=== PATIENT | female | born 1990 | race Caucasian/White ===

== ENCOUNTER 2018-09-15 07:54 | Outpatient (CLI) | payer BC ==
--- NOTE | 2018-09-15 09:07 | ULT ---
LEFT BREAST ULTRASOUND: History: 28-year-old female with palpable left breast mass of the 6 oclock position Technique: Multiplanar grayscale and color doppler images were obtained in a left breast ultrasound. FINDINGS: Normal appearing breast parenchyma is seen. No solid mass or suspicious shadowing is seen. No cystic lesion is identified. IMPRESSION: BIRADS category 1 - negative. Annual screening mammography is recommended at the age of 40. POS: ZOIE
== END 2018-09-15 07:55 | disposition home or self-care (01) ==
LOC: BICULT 07:54
PROVIDERS: ATTEND Physician Assistant
DX: N63.20 Unspecified lump in the left breast, unspecified quadrant (principal)

== ENCOUNTER 2019-07-11 08:59 | Emergency (ER) | payer BC ==
[2019-07-11 09:42] LABS: #Basophils 0.1 thou/uL (0.0-0.2); #Eosinphils 0.2 thou/uL (0.0-0.7); #Lymphocytes 1.9 thou/uL (1.20-3.40); #Monocytes 0.7 thou/uL (0.11-0.59); #Neutrophils 5.3 thou/uL (1.40-6.50); %Basophils 0.9 % (0.0-1.0); %Monocytes 8.5 % (0.0-10.0); %Neutrophils 65.5 % (42.0-75.0); Hemoglobin 12.9 g/dL (12.0-16.0); Mean Corpuscular HGB CONC 32.5 g/dL (32.0-36.0); Mean Corpuscular Hemoglobin 29.4 pg (27.0-31.0); Mean Corpuscular Volume 90.5 fL (78.0-98.0); Platelet Count 235 thou/uL (130-400); RBC Distribution Width 12.7 % (11.5-14.5); Red Blood Cell (RBC) Count 4.38 mill/uL (4.20-5.40); White Blood Cell (WBC) Count 8.1 thou/uL (4.8-10.8)
--- NOTE | 2019-07-11 10:38 | ULT ---
TRANSVAGINAL TRANSABDOMINAL PELVIC ULTRASOUND: INDICATION: Concern for ectopic . FINDINGS: Greyscale, color and spectral Doppler imaging obtained. The uterus measures 8.0 x 4.2 x 5.8 cm. Endometrial stripe measures 1.28 cm. No intrauterine gestat ion is evident. No extrauterine mass is grossly noted. Left ovary measures 2.9 x 1.7 x 1.9 cm. The right ovary measures 2.9 x 3.1 x 2.6 cm. There is minimal free fluid within the pelvis. There is s ome shadowing artifact adjacent to the left ovary likely related to adjacent bowel. IMPRESSION: Findings consistent with of undetermined location. Recommend continued clinical sonographi c followup. Findings may reflect early , ectopic , or missed . POS: CET
[2019-07-14 22:36] LABS: Chlamydia by PCR Not Detected (NotDetected); GC by PCR Not Detected (NotDetected)
== END 2019-07-11 11:01 | disposition home or self-care (01) ==
LOC: SCSER 08:59
DX: O20.0 Threatened abortion (principal); Z3A.01 Less than 8 weeks gestation of pregnancy; Z87.891 Personal history of nicotine dependence
CPT/HCPCS: 76856; 84702; 85025; 86900; 86901; 87480; 87491; 87510; 87591; 87660

== ENCOUNTER 2024-05-28 08:31 | Emergency (ER) | payer BC, OTHER ==
[2024-05-28] MEDS ORDERED: Ketorolac Tromethamine 30 MG (1 mL) VIAL ONE (09:26)
[2024-05-28 09:39] LABS: ALT (SGPT) 102 U/L (8-55); AST (SGOT) 150 U/L (5-34); Albumin 2.8 g/dL (3.5-5.0); Alkaline Phosphatase 178 U/L (40-110); Anion Gap 11 mmol/L (10-20); BHCG - Serum Negative (NEGATIVE); BUN (Urea Nitrogen) 11 mg/dL (7.0-18.7); Bilirubin, Total 1.2 mg/dL (0.2-1.2); Calc. Creatinine Clearance 0 mL/min (70-130); Calcium 8.3 mg/dL (7.8-10.44); Carbon Dioxide 24 mmol/L (22-29); Chloride 98 mmol/L (98-107); Estimated GFR 72; Globulin 3.9 g/dL (2.4-3.5); Glucose 101 mg/dL (70-105); Lipase 28 U/L (8-78); Potassium 3.2 mmol/L (3.5-5.1); Pregs Control Background? CLEAR/WHITE (CLR/WHITE); Pregs Control Bar Appear? YES (CONTROL BAR); Protein, Total 6.7 g/dL (6.0-8.3); Sodium 130 mmol/L (136-145)
[2024-05-28 09:44] LABS: Troponin I Less than 0.010 ng/mL (< 0.028)
[2024-05-28 10:09] LABS: #Basophils Less than 0.03 10x3/uL (0.0-0.2); #Eosinophils Less than 0.03 10x3/uL (0.0-0.7); %Basophils 0.3 % (0.0-1.0); %Lymphocytes 7.8 % (21.0-51.0); %Monocytes 3.5 % (0.0-10.0); %Neutrophils 87.1 % (42.0-75.0); Band 37 % (5-11); Hematocrit 36.6 % (36.0-47.0); Hemoglobin 12.3 g/dL (12.0-16.0); Large Platelets 13.9 % (0-5); Lymphocytes 9 % (21-51); Mean Corpuscular HGB CONC 33.6 g/dL (32.0-36.0); Mean Corpuscular Hemoglobin 28.3 pg (27.0-31.0); Mean Corpuscular Volume 84.1 fL (78.0-98.0); Monocytes 1 % (0-10); Neutrophil 54 % (42-75); Platelet Adequacy Comment Significant Decrease; Platelet Count 30 10x3/uL (130-400); RBC Distribution Width 13.7 % (11.5-14.5); RBC Morphology Within Normal Limits; Red Blood Cell (RBC) Count 4.35 mill/uL (4.20-5.40)
[2024-05-28 10:54] LABS: Blood, Urine 3+ (Negative); CAUTI Indications for Culture Dysuria,urgency,freq; Clarity Extra Turbid (Clear); Glucose, Urine (Dipstick) Normal (Negative); Leukocyte 75 Leu/uL (Negative); Nitrite Negative (Negative); Protein, Urine (Dipstick) 100 mg/dL (Neg-Trace); RBC/HPF Greater than 50 HPF (0-3); Specific Gravity, Urine 1.012 (1.002-1.036); Squamous Epithelial 0-3 HPF (0-3)
[2024-05-28 10:58] LABS: Bacteria/HPF 1+ HPF (None Seen)
[2024-05-28 10:59] LABS: Ketone, Urine Negative (Negative)
[2024-05-28 11:00] LABS: Bilirubin Unable to Interpret (Negative); Urobilinogen UNABLE TO INTERPRET mg/dL (Less than 2)
[2024-05-28 11:01] LABS: Urine Culture Reflex No No
[2024-05-28 11:44] LABS: MONO NEGATIVE CONTROL ZONE White (Negative) (White); MONO POSITIVE CONTROL Pink Line (Positive) (PINK/RED); Mononucleosis NEGATIVE (NEGATIVE)
== END 2024-05-28 11:59 | disposition home or self-care (01) ==
LOC: ERS 08:31
DX: B34.9 Viral infection, unspecified (principal); D69.6 Thrombocytopenia, unspecified; N39.0 Urinary tract infection, site not specified; R94.5 Abnormal results of liver function studies
CPT/HCPCS: 36415; 80053; 81001; 83605; 83690; 84484; 84703; 85025; 86308; 87428; 93005; 96374; J1885

== ENCOUNTER 2024-05-30 15:08 | Inpatient (IN) | payer OTHER ==
[~2024-05-30 15:08] MED LIST: Iopamidol-370 76% 500 ML MDV (1 ML CHARGE) ONE
[2024-05-30 15:54] LABS: Hematocrit 35.2 % (36.0-47.0); Hemoglobin 12.2 g/dL (12.0-16.0); Mean Corpuscular HGB CONC 34.7 g/dL (32.0-36.0); Mean Corpuscular Hemoglobin 28.7 pg (27.0-31.0); Mean Corpuscular Volume 82.8 fL (78.0-98.0); Platelet Count 19 10x3/uL (130-400); RBC Distribution Width 14.5 % (11.5-14.5); Red Blood Cell (RBC) Count 4.25 mill/uL (4.20-5.40)
[2024-05-30 16:00] LABS: BHCG - Serum Negative (NEGATIVE); Pregs Control Background? CLEAR/WHITE (CLR/WHITE); Pregs Control Bar Appear? YES (CONTROL BAR)
[2024-05-30 16:03] LABS: Actual Bicarbonate (HCO3v) 19.1 mEq/L (22-28); Base Excess -6.4 mEq/L (-2.0 to +3.0); Calcium, Ionized (venous) 1.02 mmol/L (1.16-1.32); Chloride (VBG) 96 mmol/L (98-106); Hematocrit-VBG 39 % (36.0-47.0); Hemoglobin (Hb) 13.2 g/dL (11.7-15.5); pH (venous) 7.317 (7.32-7.43)
[2024-05-30] MEDS ORDERED: NOREPINEPHRINE 8 MG/250 ML-D5W 250 ML ONE (16:03)
[2024-05-30 16:12] LABS: ALT (SGPT) 142 U/L (8-55); AST (SGOT) 299 U/L (5-34); Albumin 2.3 g/dL (3.5-5.0); Alkaline Phosphatase 211 U/L (40-110); Anion Gap 18 mmol/L (10-20); BUN (Urea Nitrogen) 37 mg/dL (7.0-18.7); Bilirubin, Total 5.1 mg/dL (0.2-1.2); Calc. Creatinine Clearance 0 mL/min (70-130); Calcium 7.9 mg/dL (7.8-10.44); Carbon Dioxide 18 mmol/L (22-29); Chloride 96 mmol/L (98-107); Estimated GFR 22; Globulin 3.6 g/dL (2.4-3.5); Glucose 96 mg/dL (70-105); Lipase 16 U/L (8-78); Magnesium 2.2 mg/dL (1.6-2.6); Potassium 3.4 mmol/L (3.5-5.1); Protein, Total 5.9 g/dL (6.0-8.3); Sodium 129 mmol/L (136-145)
[2024-05-30 16:14] LABS: Troponin I 0.041 ng/mL (< 0.028)
[2024-05-30 16:16] LABS: Band 56 % (5-11); Large Platelets 12.4 % (0-5); Lymphocytes 1 % (21-51); Monocytes 3 % (0-10); Neutrophil 40 % (42-75); Platelet Adequacy Comment Platelets Decreased; Polychromasia SLIGHT = 2-3 cells HPF (0-2); Reflex for Review?? YES; Smudge Cells 5.7 %
[2024-05-30] MEDS ORDERED: Cefepime 2 GM VIAL ONE (16:45)
[2024-05-30] MEDS ORDERED: Sodium Chloride 0.9% 100 ML ONE (16:45)
[2024-05-30] MEDS ORDERED: Vancomycin 1 GM/200 ML (FROZEN) BAG ONE (16:45)
[2024-05-30] MEDS ORDERED: Hydrocortisone Sod Succ/PF 100 mg/2 ml Vial ONE (17:55)
[2024-05-30 19:03] LABS: Lactic Acid 3.01 mmol/L (0.5-2.2)
[2024-05-30] MEDS: Lactated Ringer's 1,000 ML IV SCH (20:50)
[2024-05-30 21:30] LABS: INR-International Normal Ratio 1.2; Prothrombin Time 15.2 sec (12.0-14.7)
[2024-05-30 21:31] LABS: PTT 37.5 sec (22.9-36.1)
[2024-05-30 21:32] LABS: Hematocrit 35.8 % (36.0-47.0); Hemoglobin 12.1 g/dL (12.0-16.0); Mean Corpuscular HGB CONC 33.8 g/dL (32.0-36.0); Mean Corpuscular Hemoglobin 28.5 pg (27.0-31.0); Mean Corpuscular Volume 84.4 fL (78.0-98.0); Platelet Count 19 10x3/uL (130-400); RBC Distribution Width 14.7 % (11.5-14.5); Red Blood Cell (RBC) Count 4.24 mill/uL (4.20-5.40)
[2024-05-30 21:33] LABS: Lactic Acid 2.84 mmol/L (0.5-2.2)
[2024-05-30 21:37] LABS: Magnesium 2.1 mg/dL (1.6-2.6)
[2024-05-30 21:38] LABS: ALT (SGPT) 133 U/L (8-55); AST (SGOT) 269 U/L (5-34); Albumin 2.2 g/dL (3.5-5.0); Alkaline Phosphatase 198 U/L (40-110); Anion Gap 19 mmol/L (10-20); BUN (Urea Nitrogen) 35 mg/dL (7.0-18.7); Bilirubin, Total 5.4 mg/dL (0.2-1.2); Calc. Creatinine Clearance 59 mL/min (70-130); Calcium 7.3 mg/dL (7.8-10.44); Carbon Dioxide 14 mmol/L (22-29); Chloride 101 mmol/L (98-107); Estimated GFR 27; Globulin 3.5 g/dL (2.4-3.5); Glucose 113 mg/dL (70-105); Potassium 3.2 mmol/L (3.5-5.1); Protein, Total 5.7 g/dL (6.0-8.3); Sodium 131 mmol/L (136-145)
[2024-05-30] MEDS ORDERED: Dextrose 5% in Water 1,000 ML IV PRN (21:40)
[2024-05-30] MEDS ORDERED: Glucagon 1 MG/ML KIT IM PRN (21:40)
[2024-05-30] MEDS ORDERED: Dextrose 50% Abboject 50 ML SYRINGE SLOW IVP PRN (21:40)
[2024-05-30 21:41] LABS: D-Dimer Test 18.74 mcg/mL (0.27-0.43); Troponin I 0.029 ng/mL (< 0.028)
[2024-05-30 21:49] LABS: Band 28 % (5-11); Burr Cells SLIGHT = 2-5 cells HPF (0-1); Large Platelets 2.9 % (0-5); Lymphocytes 3 % (21-51); Macrocytosis SLIGHT = 6-15 cells HPF (0-5); Monocytes 4 % (0-10); Neutrophil 64 % (42-75); Plasma Cells 1 % (0-0); Platelet Adequacy Comment Platelets Decreased; Polychromasia SLIGHT = 2-3 cells HPF (0-2); Reactive Lymphocytes 1 % (0-10); Smudge Cells 4.9 %; Tear Drops SLIGHT = 2-5 cells HPF (0-1)
[2024-05-30 22:15] LABS: Bilirubin Negative (Negative); Blood, Urine Trace (Negative); CAUTI Indications for Culture Fever or rigors; Clarity Turbid (Clear); Glucose, Urine (Dipstick) Normal (Negative); Ketone, Urine Negative (Negative); Leukocyte Negative Leu/uL (Negative); Nitrite Negative (Negative); Protein, Urine (Dipstick) 10 mg/dL (Neg-Trace); RBC/HPF 0-3 HPF (0-3); Specific Gravity, Urine 1.026 (1.002-1.036); Squamous Epithelial 0-3 HPF (0-3); Urobilinogen Normal mg/dL (Less than 2); WBC/HPF 21-50 HPF (0-3)
[2024-05-30 22:17] LABS: Bacteria/HPF 1+ HPF (None Seen)
[2024-05-30 22:18] LABS: Urine Culture Reflex Yes Yes
[2024-05-30] MEDS: Vancomycin 1 GM in Premix 1 BAG IVPB SCH (22:45)
[2024-05-30] MEDS: Albumin 25% 25 GM (100 mL) BOT IVPB SCH (22:46)
[2024-05-30] MEDS: Potassium Chloride 20 MEQ TAB PO SCH (23:05)
[2024-05-30 23:12] LABS: HBsAg Index 0.48 S/CO (0-0.99); Hep A IgM AB NONREACTIVE (NonReactive); Hep A IgM S/CO 0.19 S/CO (0-0.79); Hep B Core IgM Index 0.12 S/CO (0-0.79); Hep B Surf Ag NONREACTIVE S/CO (NonReactive); Hep C IgG Ab NONREACTIVE S/CO (NonReactive); Hep C Index 0.09 S/CO (0-0.79); Hepatitis B Core IgM Abs NONREACTIVE S/CO (NonReactive)
[2024-05-30] MEDS: Hydrocortisone Sod Succ/PF 100 mg/2 ml Vial IVP SCH (23:57)
[2024-05-30] MEDS: Calcium Carbonate 500 MG ChewTAB PO PRN (23:59)
[2024-05-31 02:56] LABS: Actual Bicarbonate (HCO3v) 19.4 mEq/L (22-28); Base Excess -5.2 mEq/L (-2.0 to +3.0); Calcium, Ionized (venous) 1.02 mmol/L (1.16-1.32); Chloride (VBG) 104 mmol/L (98-106); Hematocrit-VBG 37 % (36.0-47.0); Hemoglobin (Hb) 12.6 g/dL (11.7-15.5); Potassium (VBG) 4.05 mmol/L (3.70-5.30); pH (venous) 7.366 (7.32-7.43)
[2024-05-31 03:15] LABS: Hematocrit 33.5 % (36.0-47.0); Hemoglobin 11.8 g/dL (12.0-16.0); Mean Corpuscular HGB CONC 35.2 g/dL (32.0-36.0); Mean Corpuscular Hemoglobin 28.4 pg (27.0-31.0); Mean Corpuscular Volume 80.7 fL (78.0-98.0); Platelet Count 15 10x3/uL (130-400); RBC Distribution Width 14.9 % (11.5-14.5); Red Blood Cell (RBC) Count 4.15 mill/uL (4.20-5.40)
[2024-05-31 03:36] LABS: Anisocytosis SLIGHT = 6-15 cells HPF (0-5); Band 23 % (5-11); Lymphocytes 7 % (21-51); Microcytosis SLIGHT = 6-15 cells HPF (0-5); Monocytes 1 % (0-10); Neutrophil 69 % (42-75); Platelet Adequacy Comment Significant Decrease; Polychromasia SLIGHT = 2-3 cells HPF (0-2); Target Cells SLIGHT = 2-5 cells HPF (0-1); Tear Drops SLIGHT = 2-5 cells HPF (0-1)
[2024-05-31 03:56] LABS: ALT (SGPT) 111 U/L (8-55); AST (SGOT) 224 U/L (5-34); Albumin 2.3 g/dL (3.5-5.0); Alkaline Phosphatase 161 U/L (40-110); Anion Gap 18 mmol/L (10-20); BUN (Urea Nitrogen) 33 mg/dL (7.0-18.7); Bilirubin, Total 5.4 mg/dL (0.2-1.2); Calc. Creatinine Clearance 80 mL/min (70-130); Calcium 7.5 mg/dL (7.8-10.44); Carbon Dioxide 15 mmol/L (22-29); Chloride 105 mmol/L (98-107); Estimated GFR 40; Globulin 3.1 g/dL (2.4-3.5); Glucose 113 mg/dL (70-105); Magnesium 2.5 mg/dL (1.6-2.6); Potassium 3.7 mmol/L (3.5-5.1); Protein, Total 5.4 g/dL (6.0-8.3); Sodium 134 mmol/L (136-145)
[2024-05-31] MEDS: Cefepime 2 GM in Sodium Chloride 0.9% 100 ML IVPB SCH (04:27)
[2024-05-31 04:47] VITALS: BMI 39.9
[2024-05-31 07:22] LABS: Lactic Acid 2.01 mmol/L (0.5-2.2)
[2024-05-31 07:32] LABS: MONO NEGATIVE CONTROL ZONE White (Negative) (White); MONO POSITIVE CONTROL Pink Line (Positive) (PINK/RED); Mononucleosis NEGATIVE (NEGATIVE)
[2024-05-31 08:15] LABS: Influenza A by NAA Not Detected (NotDetected); Influenza B by NAA Not Detected (NotDetected); RSV by NAA Not Detected (NotDetected); SARS-CoV-2 NAA Rapid Test Not Detected (NotDetected)
[2024-05-31] MEDS: Acetaminophen 500 MG TAB PO PRN (08:42)
[2024-05-31] MEDS: Vancomycin HCl 500 MG in Sodium Chloride 0.9% 100 ML IVPB SCH (08:42)
[2024-05-31] MEDS: Pantoprazole DR 40 MG TAB PO SCH (08:43)
[2024-05-31 09:16] LABS: Phosphorus 2.8 mg/dL (2.3-4.7)
[2024-05-31] MEDS: Amitriptyline HCl 25 MG TAB PO SCH (10:13)
[2024-05-31] MEDS: Vancomycin (BATCH) 1.5 GM in Premix 1 BAG IVPB SCH (11:47)
[2024-05-31 13:05] LABS: #Basophils 0.03 10x3/uL (0.0-0.2); #Eosinophils Less than 0.03 10x3/uL (0.0-0.7); %Basophils 0.3 % (0.0-1.0); %Monocytes 2.7 % (0.0-10.0); %Neutrophils 85.8 % (42.0-75.0); Hematocrit 32.1 % (36.0-47.0); Hemoglobin 10.8 g/dL (12.0-16.0); Mean Corpuscular HGB CONC 33.6 g/dL (32.0-36.0); Mean Corpuscular Hemoglobin 28.3 pg (27.0-31.0); Platelet Count 20 10x3/uL (130-400); Red Blood Cell (RBC) Count 3.82 mill/uL (4.20-5.40)
[2024-05-31 13:22] LABS: ALT (SGPT) 84 U/L (8-55); AST (SGOT) 175 U/L (5-34); Albumin 2.8 g/dL (3.5-5.0); Alkaline Phosphatase 154 U/L (40-110); Anion Gap 14 mmol/L (10-20); BUN (Urea Nitrogen) 32 mg/dL (7.0-18.7); Bilirubin, Total 5.8 mg/dL (0.2-1.2); Calc. Creatinine Clearance 100 mL/min (70-130); Calcium 7.8 mg/dL (7.8-10.44); Carbon Dioxide 18 mmol/L (22-29); Chloride 106 mmol/L (98-107); Estimated GFR 50; Globulin 2.5 g/dL (2.4-3.5); Glucose 95 mg/dL (70-105); Protein, Total 5.3 g/dL (6.0-8.3); Sodium 135 mmol/L (136-145)
[2024-05-31] MEDS: Dexmedetomidine In 0.9 % NaCl 100 ML IVPB SCH (13:50)
[2024-05-31] MEDS: Ondansetron PF 4 MG/2 ML Vial IVP PRN (14:24)
[2024-05-31] MEDS ORDERED: Etomidate 40 MG (20 mL) VIAL ONE (15:18)
[2024-05-31] MEDS ORDERED: SUCCINYLCHOLINE/SOD CL,ISO/PF 200 MG/10 ML SYRINGE FS ONE (15:18)
[2024-05-31] MEDS ORDERED: PROPOFOL 200 MG/20 ML VIAL ONE (15:18)
[2024-05-31] MEDS: Fentanyl CADD 100 ML IV SCH (15:40)
[2024-05-31] MEDS ORDERED: Propofol 1,000 MG/100 ML VIAL IV PRN (15:45)
[2024-05-31] MEDS ORDERED: Propofol BOLUS 1,000 MG/100 ML VIAL IV PRN (15:45)
[2024-05-31] MEDS ORDERED: Fentanyl BOLUS 250 ML IVPB PRN (15:45)
[2024-05-31] MEDS ORDERED: DISCONTINUE PREVIOUS NARCOTIC PAIN MEDICATIONS AND BENZODIAZEPINES FS SCH (15:45)
[2024-05-31 15:53] LABS: Actual Bicarbonate (HCO3a) 16.4 mEq/L (22-28); CO2 Tension 33.7 mmHg (35.0-45.0); Calcium, Ionized (arterial) 1.15 mmol/L (1.12-1.30); Carboxyhemoglobin (COHb) 0.3 gm% (0.0-3.0); Hematocrit-ABG 33 % (36.0-47.0); Hemoglobin (Hb) 11.3 g/dL (12.0-16.0); Potassium - ABG Lab 3.31 mmol/L (3.70-5.30); pH, Arterial 7.304 (7.35-7.45)
[2024-05-31 15:58] LABS: ALV-art Gradient 590.875 mmHg (0-20); Puncture Site Left Radial artery
[2024-05-31] MEDS: Lorazepam 2 MG/ML VIAL SLOW IVP PRN (16:14)
[2024-05-31] MEDS: Fentanyl CADD 100 ML ONE (16:21)
[2024-05-31] MEDS: Ventilator Sedation Protocol 1 EACH FS ONE (16:21)
[2024-05-31] MEDS: fentaNYL 50 mcg/mL 1 mL Vial SLOW IVP SCH (16:22)
[2024-05-31 17:37] LABS: Bilirubin, Direct 5.1 mg/dL (0.1-0.3); Bilirubin, Total 6.7 mg/dL (0.2-1.2)
[2024-05-31] MEDS: Potassium Chloride 20 MEQ in Premix 1 BAG IVPB SCH (18:16)
[2024-05-31] MEDS: NOREPINEPHRINE 8 MG/250 ML-D5W 250 ML IVPB SCH (18:17)
[2024-05-31 18:32] LABS: #Basophils 0.04 10x3/uL (0.0-0.2); #Eosinophils Less than 0.03 10x3/uL (0.0-0.7); %Basophils 0.3 % (0.0-1.0); %Lymphocytes 6.1 % (21.0-51.0); %Monocytes 3.1 % (0.0-10.0); Hematocrit 31.4 % (36.0-47.0); Hemoglobin 10.7 g/dL (12.0-16.0); Mean Corpuscular HGB CONC 34.1 g/dL (32.0-36.0); Mean Corpuscular Hemoglobin 28.5 pg (27.0-31.0); Mean Corpuscular Volume 83.7 fL (78.0-98.0); Platelet Count 14 10x3/uL (130-400); RBC Distribution Width 15.3 % (11.5-14.5); Red Blood Cell (RBC) Count 3.75 mill/uL (4.20-5.40)
[2024-05-31 18:44] LABS: INR-International Normal Ratio 1.2; Prothrombin Time 15.5 sec (12.0-14.7)
[2024-05-31 18:45] LABS: Fibrinogen 198 mg/dL (253-463); PTT 34.7 sec (22.9-36.1)
[2024-05-31 18:59] LABS: ALT (SGPT) 83 U/L (8-55); AST (SGOT) 190 U/L (5-34); Albumin 2.6 g/dL (3.5-5.0); Alkaline Phosphatase 153 U/L (40-110); Anion Gap 13 mmol/L (10-20); BUN (Urea Nitrogen) 37 mg/dL (7.0-18.7); Bilirubin, Direct 5.4 mg/dL (0.1-0.3); Bilirubin, Total 6.8 mg/dL (0.2-1.2); Calc. Creatinine Clearance 81 mL/min (70-130); Calcium 7.8 mg/dL (7.8-10.44); Carbon Dioxide 16 mmol/L (22-29); Chloride 108 mmol/L (98-107); Estimated GFR 38; Glucose 124 mg/dL (70-105); Magnesium 2.6 mg/dL (1.6-2.6); Phosphorus 2.1 mg/dL (2.3-4.7); Potassium 3.4 mmol/L (3.5-5.1); Sodium 134 mmol/L (136-145)
[2024-05-31] MEDS ORDERED: Electrolyte Replacement Protocol 1 EACH FS SCH (20:11)
[2024-05-31] MEDS ORDERED: Sodium Bicarbonate 150 MEQ in Dextrose 5% in Water 1,000 ML IVP SCH (21:30)
[2024-05-31] MEDS ORDERED: Potassium Chloride 20 MEQ in Premix 1 BAG IVPB SCH (22:00)
[2024-05-31 22:06] LABS: Actual Bicarbonate (HCO3a) 18.3 mEq/L (22-28); Base Excess (BEa) -6.7 mEq/L (-2.0 to +3.0); Calcium, Ionized (arterial) 1.13 mmol/L (1.12-1.30); Carboxyhemoglobin (COHb) 0.7 gm% (0.0-3.0); Hematocrit-ABG 32 % (36.0-47.0); Hemoglobin (Hb) 10.8 g/dL (12.0-16.0); pH, Arterial 7.337 (7.35-7.45)
[2024-05-31 22:10] LABS: O2 Tension (PaO2), arterial 41.3 mmHg (80.0-100.0)
[2024-05-31] MEDS: Sodium Bicarbonate 150 MEQ in Dextrose 5% in Water 1,000 ML IV SCH (22:26)
[2024-05-31] MEDS: Albumin 25% 25 GM (100 mL) BOT IVPB SCH (23:10)
[2024-06-01 04:37] LABS: ALT (SGPT) 67 U/L (8-55); AST (SGOT) 167 U/L (5-34); Albumin 2.8 g/dL (3.5-5.0); Alkaline Phosphatase 147 U/L (40-110); Anion Gap 16 mmol/L (10-20); BUN (Urea Nitrogen) 47 mg/dL (7.0-18.7); Bilirubin, Total 7.5 mg/dL (0.2-1.2); Calc. Creatinine Clearance 55 mL/min (70-130); Calcium 7.7 mg/dL (7.8-10.44); Carbon Dioxide 17 mmol/L (22-29); Chloride 106 mmol/L (98-107); Estimated GFR 24; Globulin 2.1 g/dL (2.4-3.5); Glucose 131 mg/dL (70-105); Magnesium 2.8 mg/dL (1.6-2.6); Protein, Total 4.9 g/dL (6.0-8.3); Sodium 135 mmol/L (136-145); Vancomycin, Random 19.6 ug/mL (See Comment)
[2024-06-01 05:10] LABS: Hematocrit 28.5 % (36.0-47.0); Hemoglobin 9.5 g/dL (12.0-16.0); Mean Corpuscular HGB CONC 33.3 g/dL (32.0-36.0); Mean Corpuscular Hemoglobin 28.3 pg (27.0-31.0); Mean Corpuscular Volume 84.8 fL (78.0-98.0); Platelet Count 14 10x3/uL (130-400); RBC Distribution Width 15.6 % (11.5-14.5); Red Blood Cell (RBC) Count 3.36 mill/uL (4.20-5.40)
[2024-06-01 05:12] LABS: Band 20 % (5-11); Large Platelets 2.9 % (0-5); Lymphocytes 5 % (21-51); Metamyelocyte 1 % (0-0); Monocytes 1 % (0-10); Myelocyte 1 % (0-0); Neutrophil 68 % (42-75); Platelet Adequacy Comment Significant Decrease; Polychromasia SLIGHT = 2-3 cells HPF (0-2); RBC Morphology Within Normal Limits; Reactive Lymphocytes 4 % (0-10); Smudge Cells 12.6 %
[2024-06-01 05:27] LABS: Phosphorus 2.8 mg/dL (2.3-4.7)
[2024-06-01] MEDS: Vancomycin 1 GM in Premix 1 BAG IVPB SCH (08:04)
[2024-06-01] MEDS ORDERED: Vancomycin (BATCH) 1.5 GM in Premix 1 BAG IVPB SCH (09:00)
[2024-06-01] MEDS: Pantoprazole 40 MG VIAL IVP SCH (09:10)
[2024-06-01] MEDS: Vecuronium 10 MG VIAL IV PRN (09:41)
[2024-06-01] MEDS: Meropenem 1 GM in Sodium Chloride 0.9% 100 ML IVPB SCH ×2 (09:42→17:49)
[2024-06-01] MEDS: Furosemide 20 MG (2 mL) VIAL SLOW IVP SCH (10:11)
[2024-06-01] MEDS: FLU (Fluarix Triv) TS24-25(6MOS UP)/PF 45 MCG/0.5 ML Syringe IM ONE (10:13)
[2024-06-01 14:34] LABS: Platelet Count 10 10x3/uL (130-400)
[2024-06-01 14:35] LABS: Hematocrit 28.4 % (36.0-47.0); Hemoglobin 9.5 g/dL (12.0-16.0); Mean Corpuscular HGB CONC 33.5 g/dL (32.0-36.0); Mean Corpuscular Hemoglobin 28.1 pg (27.0-31.0); Platelet Count 10 10x3/uL (130-400); Red Blood Cell (RBC) Count 3.38 mill/uL (4.20-5.40)
[2024-06-01 14:47] LABS: Fibrinogen 158 mg/dL (253-463); INR-International Normal Ratio 1.4; PTT 37.2 sec (22.9-36.1); Prothrombin Time 17.5 sec (12.0-14.7)
[2024-06-01 14:50] LABS: Anion Gap 15 mmol/L (10-20); BUN (Urea Nitrogen) 59 mg/dL (7.0-18.7); Calc. Creatinine Clearance 48 mL/min (70-130); Calcium 7.5 mg/dL (7.8-10.44); Carbon Dioxide 18 mmol/L (22-29); Chloride 106 mmol/L (98-107); Estimated GFR 20; Glucose 132 mg/dL (70-105); Potassium 3.9 mmol/L (3.5-5.1); Sodium 135 mmol/L (136-145)
[2024-06-01 14:58] LABS: Band 19 % (5-11); Hypochromia SLIGHT = 6-15 cells HPF (0-5); Large Platelets 1.9 % (0-5); Lymphocytes 6 % (21-51); Monocytes 7 % (0-10); Neutrophil 68 % (42-75); Platelet Adequacy Comment Platelets Decreased; Polychromasia SLIGHT = 2-3 cells HPF (0-2); Smudge Cells 7.8 %
[2024-06-01 15:03] LABS: D-Dimer Test 10.66 mcg/mL (0.27-0.43)
[2024-06-01] MEDS ORDERED: Vecuronium 10 MG VIAL IV PRN (17:00)
[2024-06-01 17:34] LABS: Legionella Urinary Ag Negative (Negative)
[2024-06-01 17:35] LABS: Strep pneumo Urine Ag NEGATIVE (NEGATIVE)
[2024-06-01] MEDS: Clindamycin/D5W 900 MG in Premix 1 BAG IVPB SCH ×2 (17:48→21:06)
[2024-06-01] MEDS: LevoFLOXacin 750 mg/D5W 750 MG in Premix 1 BAG IVPB SCH (17:49)
[2024-06-02 04:28] LABS: #Basophils 0.05 10x3/uL (0.0-0.2); #Eosinophils Less than 0.03 10x3/uL (0.0-0.7); %Basophils 0.3 % (0.0-1.0); %Lymphocytes 14.3 % (21.0-51.0); %Monocytes 4.1 % (0.0-10.0); %Neutrophils 75.8 % (42.0-75.0); Hematocrit 27.3 % (36.0-47.0); Platelet Count 17 10x3/uL (130-400); RBC Distribution Width 16.1 % (11.5-14.5); Red Blood Cell (RBC) Count 3.21 mill/uL (4.20-5.40)
[2024-06-02 04:36] LABS: Platelet Count 18 10x3/uL (130-400)
[2024-06-02 04:43] LABS: Vancomycin, Random 19.8 ug/mL (See Comment)
[2024-06-02 04:54] LABS: Fibrinogen 217 mg/dL (253-463)
[2024-06-02 04:55] LABS: INR-International Normal Ratio 1.3; PTT 29.3 sec (22.9-36.1); Prothrombin Time 15.8 sec (12.0-14.7)
[2024-06-02 05:20] LABS: ALT (SGPT) 70 U/L (8-55); AST (SGOT) 196 U/L (5-34); Alkaline Phosphatase 139 U/L (40-110); Anion Gap 17 mmol/L (10-20); BUN (Urea Nitrogen) 78 mg/dL (7.0-18.7); Bilirubin, Total 8.8 mg/dL (0.2-1.2); Calc. Creatinine Clearance 47 mL/min (70-130); Calcium 7.8 mg/dL (7.8-10.44); Carbon Dioxide 17 mmol/L (22-29); Chloride 108 mmol/L (98-107); Estimated GFR 19; Globulin 2.4 g/dL (2.4-3.5); Glucose 128 mg/dL (70-105); Potassium 3.9 mmol/L (3.5-5.1); Protein, Total 5.4 g/dL (6.0-8.3); Sodium 138 mmol/L (136-145)
[2024-06-02 05:48] LABS: D-Dimer Test 10.74 mcg/mL (0.27-0.43)
[2024-06-02 07:57] LABS: Actual Bicarbonate (HCO3a) 15.9 mEq/L (22-28); Base Excess (BEa) -8.8 mEq/L (-2.0 to +3.0); Calcium, Ionized (arterial) 1.13 mmol/L (1.12-1.30); Carboxyhemoglobin (COHb) 0.2 gm% (0.0-3.0); Hematocrit-ABG 29 % (36.0-47.0); Hemoglobin (Hb) 9.9 g/dL (12.0-16.0); O2 Tension (PaO2), arterial 87.2 mmHg (80.0-100.0); Potassium - ABG Lab 3.91 mmol/L (3.70-5.30); pH, Arterial 7.341 (7.35-7.45)
[2024-06-02 08:07] LABS: Puncture Site Right Radial artery
[2024-06-02] MEDS: Vancomycin HCl 750 MG in Sodium Chloride 0.9% 250 ML 250 ML IVPB SCH (08:21)
[2024-06-02] MEDS: Midazolam HCl 2 mg/2 ml Vial IVP SCH (09:30)
[2024-06-02 09:41] LABS: Complement-C4 10 mg/dL (15-57)
[2024-06-02] MEDS: Midazolam HCl 2 mg/2 ml Vial ONE (09:51)
[2024-06-02] MEDS: methylPREDNISolone Sod Succ 40 MG VIAL IVP SCH (11:02)
[2024-06-02] MEDS: Albumin 25% 25 GM (100 mL) BOT IVPB SCH (11:02)
[2024-06-02 11:30] LABS: Actual Bicarbonate (HCO3a) 17.2 mEq/L (22-28); Base Excess (BEa) -6.8 mEq/L (-2.0 to +3.0); CO2 Tension 29.1 mmHg (35.0-45.0); Calcium, Ionized (arterial) 1.11 mmol/L (1.12-1.30); Carboxyhemoglobin (COHb) 0.3 gm% (0.0-3.0); Hematocrit-ABG 29 % (36.0-47.0); O2 Tension (PaO2), arterial 126.4 mmHg (80.0-100.0); Potassium - ABG Lab 4.04 mmol/L (3.70-5.30); pH, Arterial 7.389 (7.35-7.45)
[2024-06-02 11:38] LABS: ALV-art Gradient 229.375 mmHg (0-20); Puncture Site Left Radial artery
[2024-06-02 12:25] LABS: ANA Symphony (Qualitative) Negative (Negative); ANA Symphony (Quantitative) 0.2 Ratio (< 0.7 Negative); Mitochondrial Ab 0.6 U/mL (<4 Negative); Thyroid Peroxidase IgG Ab Less than 4.0 IU/mL (<25 Normal)
[2024-06-02 13:07] LABS: EliA RAS New Method **** NEW METHOD ****; Jo-1 IgG Antibody Less than 0.3 EliAU/mL (<7 Negative); Rheumatoid Factor IgA Antibody 4.1 IU/mL (<14 Negative); Rheumatoid Factor IgM Antibody 2.9 IU/mL (<3.5 Negative)
[2024-06-02 15:17] LABS: Hematocrit 25.8 % (36.0-47.0); Hemoglobin 8.7 g/dL (12.0-16.0); Mean Corpuscular HGB CONC 33.7 g/dL (32.0-36.0); Mean Corpuscular Hemoglobin 28.1 pg (27.0-31.0); Mean Corpuscular Volume 83.2 fL (78.0-98.0); Mean Platelet Volume 12.2 fL (7.4-10.4); Platelet Count 30 10x3/uL (130-400); RBC Distribution Width 16.4 % (11.5-14.5)
[2024-06-02 15:36] LABS: Anisocytosis SLIGHT = 6-15 cells HPF (0-5); Band 11 % (5-11); Large Platelets 3.9 % (0-5); Lymphocytes 8 % (21-51); Monocytes 2 % (0-10); Neutrophil 77 % (42-75); Nucleated RBC (Manual Ct) 2 % (0); Platelet Adequacy Comment Platelets Decreased; Polychromasia SLIGHT = 2-3 cells HPF (0-2); Reactive Lymphocytes 2 % (0-10); Smudge Cells 4.9 %
[2024-06-02] MEDS: Dexmedetomidine 1,000 MCG in NS 250 mL IVPB SCH (16:45)
[2024-06-03] MEDS: Artificial Tear Ophth Sol 15 ML BOT EA EYE PRN (00:29)
[2024-06-03 04:00] LABS: Vancomycin, Random 20.7 ug/mL (See Comment)
[2024-06-03 04:06] LABS: ALT (SGPT) 55 U/L (8-55); AST (SGOT) 125 U/L (5-34); Albumin 3.4 g/dL (3.5-5.0); Alkaline Phosphatase 94 U/L (40-110); Anion Gap 16 mmol/L (10-20); BUN (Urea Nitrogen) 103 mg/dL (7.0-18.7); Bilirubin, Total 6.3 mg/dL (0.2-1.2); Calc. Creatinine Clearance 46 mL/min (70-130); Calcium 7.9 mg/dL (7.8-10.44); Carbon Dioxide 18 mmol/L (22-29); Chloride 109 mmol/L (98-107); Estimated GFR 18; Globulin 2.2 g/dL (2.4-3.5); Glucose 165 mg/dL (70-105); Protein, Total 5.6 g/dL (6.0-8.3); Sodium 139 mmol/L (136-145)
[2024-06-03 04:08] LABS: Hematocrit 24.1 % (36.0-47.0); Hemoglobin 8.2 g/dL (12.0-16.0); Mean Corpuscular Hemoglobin 27.9 pg (27.0-31.0); Platelet Count 19 10x3/uL (130-400); Platelet Count 23 10x3/uL (130-400); RBC Distribution Width 16.3 % (11.5-14.5); Red Blood Cell (RBC) Count 2.94 mill/uL (4.20-5.40)
[2024-06-03 04:30] LABS: INR-International Normal Ratio 1.4; PTT 28.8 sec (22.9-36.1); Prothrombin Time 16.8 sec (12.0-14.7)
[2024-06-03 04:34] LABS: Fibrinogen 136 mg/dL (253-463)
[2024-06-03 04:57] LABS: D-Dimer Test Greater than 20.00 mcg/mL (0.27-0.43)
[2024-06-03 05:11] LABS: Band 3 % (5-11); Hypochromia SLIGHT = 6-15 cells HPF (0-5); Lymphocytes 10 % (21-51); Metamyelocyte 2 % (0-0); Monocytes 8 % (0-10); Neutrophil 77 % (42-75); Platelet Adequacy Comment Significant Decrease; Polychromasia SLIGHT = 2-3 cells HPF (0-2); Smudge Cells 10.9 %
[2024-06-03 07:25] LABS: Actual Bicarbonate (HCO3a) 17.8 mEq/L (22-28); Base Excess (BEa) -6.8 mEq/L (-2.0 to +3.0); CO2 Tension 32.1 mmHg (35.0-45.0); Calcium, Ionized (arterial) 1.16 mmol/L (1.12-1.30); Carboxyhemoglobin (COHb) 0.7 gm% (0.0-3.0); Hematocrit-ABG 25 % (36.0-47.0); Hemoglobin (Hb) 8.6 g/dL (12.0-16.0); O2 Tension (PaO2), arterial 102.6 mmHg (80.0-100.0); pH, Arterial 7.362 (7.35-7.45)
[2024-06-03 07:27] LABS: ALV-art Gradient 142.475 mmHg (0-20); Puncture Site Right Radial artery
[2024-06-03] MEDS: Furosemide 40 MG (4 mL) VIAL SLOW IVP SCH ×2 (09:00→12:31)
[2024-06-03 12:48] LABS: Platelet Count 27 10x3/uL (130-400)
[2024-06-03 13:00] LABS: Fibrinogen 171 mg/dL (253-463)
[2024-06-03 13:01] LABS: PTT 27.6 sec (22.9-36.1)
[2024-06-03 13:02] LABS: INR-International Normal Ratio 1.3; Prothrombin Time 16.2 sec (12.0-14.7)
[2024-06-03 13:28] LABS: D-Dimer Test Greater than 20.00 mcg/mL (0.27-0.43)
[2024-06-03 15:31] LABS: Hematocrit 22.4 % (36.0-47.0); Hemoglobin 7.8 g/dL (12.0-16.0); Mean Corpuscular HGB CONC 34.8 g/dL (32.0-36.0); Mean Corpuscular Hemoglobin 28.6 pg (27.0-31.0); Mean Corpuscular Volume 82.1 fL (78.0-98.0); Platelet Count 26 10x3/uL (130-400); RBC Distribution Width 16.5 % (11.5-14.5); Red Blood Cell (RBC) Count 2.73 mill/uL (4.20-5.40)
[2024-06-03 15:54] LABS: Anisocytosis SLIGHT = 6-15 cells HPF (0-5); Band 3 % (5-11); Hypochromia SLIGHT = 6-15 cells HPF (0-5); Large Platelets 2.9 % (0-5); Lymphocytes 6 % (21-51); Monocytes 5 % (0-10); Neutrophil 84 % (42-75); Plasma Cells 1 % (0-0); Platelet Adequacy Comment Platelets Decreased; Polychromasia SLIGHT = 2-3 cells HPF (0-2); Reactive Lymphocytes 2 % (0-10); Smudge Cells 6.7 %; Target Cells SLIGHT = 2-5 cells HPF (0-1)
[2024-06-04 04:59] LABS: Hematocrit 23.8 % (36.0-47.0); Hemoglobin 8.2 g/dL (12.0-16.0); Mean Corpuscular HGB CONC 34.5 g/dL (32.0-36.0); Mean Corpuscular Volume 81.2 fL (78.0-98.0); Platelet Count 26 10x3/uL (130-400); RBC Distribution Width 16.1 % (11.5-14.5); Red Blood Cell (RBC) Count 2.93 mill/uL (4.20-5.40)
[2024-06-04 05:02] LABS: ALT (SGPT) 58 U/L (8-55); AST (SGOT) 110 U/L (5-34); Albumin 3.4 g/dL (3.5-5.0); Alkaline Phosphatase 93 U/L (40-110); Anion Gap 17 mmol/L (10-20); BUN (Urea Nitrogen) 124 mg/dL (7.0-18.7); Bilirubin, Total 4.1 mg/dL (0.2-1.2); Calc. Creatinine Clearance 55 mL/min (70-130); Calcium 8.4 mg/dL (7.8-10.44); Carbon Dioxide 19 mmol/L (22-29); Chloride 112 mmol/L (98-107); Estimated GFR 22; Globulin 2.5 g/dL (2.4-3.5); Glucose 194 mg/dL (70-105); Potassium 3.7 mmol/L (3.5-5.1); Protein, Total 5.9 g/dL (6.0-8.3); Sodium 144 mmol/L (136-145)
[2024-06-04 05:12] LABS: Fibrinogen 151 mg/dL (253-463); INR-International Normal Ratio 1.3; PTT 26.6 sec (22.9-36.1); Prothrombin Time 16.3 sec (12.0-14.7)
[2024-06-04 05:35] LABS: Anisocytosis SLIGHT = 6-15 cells HPF (0-5); Hypochromia SLIGHT = 6-15 cells HPF (0-5); Large Platelets 4.9 % (0-5); Lymphocytes 19 % (21-51); Macrocytosis SLIGHT = 6-15 cells HPF (0-5); Monocytes 7 % (0-10); Myelocyte 1 % (0-0); Neutrophil 73 % (42-75); Nucleated RBC (Manual Ct) 2 % (0); Platelet Adequacy Comment Platelets Decreased; Polychromasia SLIGHT = 2-3 cells HPF (0-2); Smudge Cells 9.7 %
[2024-06-04 06:44] LABS: D-Dimer Test Greater than 20.00 mcg/mL (0.27-0.43)
[2024-06-04 06:46] LABS: Platelet Count 26 10x3/uL (130-400)
[2024-06-04 07:55] LABS: Actual Bicarbonate (HCO3a) 20.5 mEq/L (22-28); Base Excess (BEa) -2.9 mEq/L (-2.0 to +3.0); Calcium, Ionized (arterial) 1.18 mmol/L (1.12-1.30); Carboxyhemoglobin (COHb) 0.9 gm% (0.0-3.0); Hematocrit-ABG 23 % (36.0-47.0); Hemoglobin (Hb) 7.9 g/dL (12.0-16.0); O2 Tension (PaO2), arterial 91.3 mmHg (80.0-100.0); Potassium - ABG Lab 3.59 mmol/L (3.70-5.30); pH, Arterial 7.453 (7.35-7.45)
[2024-06-04 07:57] LABS: Puncture Site Left Radial artery
[2024-06-04] MEDS: Furosemide 20 MG (2 mL) VIAL SLOW IVP SCH (08:56)
[2024-06-04] MEDS: methylPREDNISolone Sod Succ 40 MG VIAL IVP SCH (17:31)
[2024-06-04 18:33] LABS: Hematocrit 24.3 % (36.0-47.0); Hemoglobin 8.3 g/dL (12.0-16.0); Mean Corpuscular HGB CONC 34.2 g/dL (32.0-36.0); Mean Corpuscular Hemoglobin 28.1 pg (27.0-31.0); Mean Corpuscular Volume 82.4 fL (78.0-98.0); Platelet Count 30 10x3/uL (130-400); RBC Distribution Width 16.3 % (11.5-14.5); Red Blood Cell (RBC) Count 2.95 mill/uL (4.20-5.40)
[2024-06-04 19:12] LABS: Anisocytosis SLIGHT = 6-15 cells HPF (0-5); Band 2 % (5-11); Hypochromia SLIGHT = 6-15 cells HPF (0-5); Large Platelets 8.2 % (0-5); Lymphocytes 3 % (21-51); Metamyelocyte 1 % (0-0); Microcytosis SLIGHT = 6-15 cells HPF (0-5); Monocytes 6 % (0-10); Myelocyte 1 % (0-0); Neutrophil 86 % (42-75); Platelet Adequacy Comment Significant Decrease; Polychromasia SLIGHT = 2-3 cells HPF (0-2); Schistocytes SLIGHT = 2-5 cells HPF (0-1); Target Cells SLIGHT = 2-5 cells HPF (0-1)
[2024-06-04 19:37] LABS: Cytoplasmic (C-ANCA) <1:20 titer (Neg:<1:20); Myeloperoxidase AutoAbs <0.2 units (0.0-0.9); Perinuclear (P-ANCA) <1:20 titer (Neg:<1:20); Proteinase-3 AutoAbs Less than 0.2 units (0.0-0.9)
[2024-06-05 04:44] LABS: Fibrinogen 196 mg/dL (253-463)
[2024-06-05 04:45] LABS: INR-International Normal Ratio 1.3; PTT 26.3 sec (22.9-36.1); Prothrombin Time 15.9 sec (12.0-14.7)
[2024-06-05 04:47] LABS: ALT (SGPT) 63 U/L (8-55); AST (SGOT) 83 U/L (5-34); Albumin 3.3 g/dL (3.5-5.0); Alkaline Phosphatase 95 U/L (40-110); Anion Gap 15 mmol/L (10-20); BUN (Urea Nitrogen) 122 mg/dL (7.0-18.7); Bilirubin, Total 3.2 mg/dL (0.2-1.2); Calc. Creatinine Clearance 68 mL/min (70-130); Calcium 8.7 mg/dL (7.8-10.44); Carbon Dioxide 24 mmol/L (22-29); Chloride 117 mmol/L (98-107); Estimated GFR 29; Globulin 2.9 g/dL (2.4-3.5); Glucose 218 mg/dL (70-105); Potassium 3.8 mmol/L (3.5-5.1); Protein, Total 6.2 g/dL (6.0-8.3); Sodium 152 mmol/L (136-145)
[2024-06-05 04:58] LABS: Platelet Count 33 10x3/uL (130-400)
[2024-06-05 04:58] LABS: Hematocrit 23.5 % (36.0-47.0); Mean Corpuscular Hemoglobin 28.3 pg (27.0-31.0); Platelet Count 34 10x3/uL (130-400); RBC Distribution Width 16.4 % (11.5-14.5); Red Blood Cell (RBC) Count 2.83 mill/uL (4.20-5.40)
[2024-06-05] MEDS ORDERED: Insulin Lispro 100 UNIT/ML 10 ML VIAL SC PRN (05:00)
[2024-06-05 05:12] LABS: D-Dimer Test Greater than 20.00 mcg/mL (0.27-0.43)
[2024-06-05] MEDS: Insulin Lispro 100 UNIT/ML 10 ML VIAL SC PRN (06:04)
[2024-06-05 06:09] LABS: Anisocytosis SLIGHT = 6-15 cells HPF (0-5); Band 4 % (5-11); Hypochromia SLIGHT = 6-15 cells HPF (0-5); Large Platelets 13.9 % (0-5); Lymphocytes 6 % (21-51); Metamyelocyte 1 % (0-0); Microcytosis SLIGHT = 6-15 cells HPF (0-5); Monocytes 9 % (0-10); Myelocyte 2 % (0-0); Neutrophil 78 % (42-75); Platelet Adequacy Comment Significant Decrease; Polychromasia SLIGHT = 2-3 cells HPF (0-2); Target Cells SLIGHT = 2-5 cells HPF (0-1); Tear Drops SLIGHT = 2-5 cells HPF (0-1)
[2024-06-05] MEDS: Lactulose 20 GM (30 mL) UDCUP PER TUBE SCH (14:38)
[2024-06-05 17:57] LABS: Hematocrit 25.3 % (36.0-47.0); Hemoglobin 8.3 g/dL (12.0-16.0); Mean Corpuscular HGB CONC 32.8 g/dL (32.0-36.0); Mean Corpuscular Hemoglobin 27.8 pg (27.0-31.0); Mean Corpuscular Volume 84.6 fL (78.0-98.0); Platelet Count 36 10x3/uL (130-400); RBC Distribution Width 16.7 % (11.5-14.5); Red Blood Cell (RBC) Count 2.99 mill/uL (4.20-5.40)
[2024-06-05 18:10] LABS: Anisocytosis SLIGHT = 6-15 cells HPF (0-5); Band 4 % (5-11); Hypochromia SLIGHT = 6-15 cells HPF (0-5); Large Platelets 9.9 % (0-5); Lymphocytes 18 % (21-51); Metamyelocyte 3 % (0-0); Monocytes 10 % (0-10); Neutrophil 64 % (42-75); Platelet Adequacy Comment Platelets Decreased; Poikilocytosis SLIGHT = 6-15 cells HPF (0-5); Polychromasia SLIGHT = 2-3 cells HPF (0-2); Reactive Lymphocytes 1 % (0-10); Target Cells SLIGHT = 2-5 cells HPF (0-1)
[2024-06-05] MEDS: Morphine 2 MG/ML VIAL SLOW IVP PRN (21:46)
[2024-06-06] MEDS: Meropenem 1 GM VIAL ONE (05:37)
[2024-06-06 06:27] LABS: Anion Gap 12 mmol/L (10-20); BUN (Urea Nitrogen) 94 mg/dL (7.0-18.7); Carbon Dioxide 25 mmol/L (22-29); Chloride 123 mmol/L (98-107); Potassium 3.9 mmol/L (3.5-5.1); Sodium 156 mmol/L (136-145)
[2024-06-06 06:28] LABS: ALT (SGPT) 76 U/L (8-55); AST (SGOT) 83 U/L (5-34); Albumin 3.2 g/dL (3.5-5.0); Alkaline Phosphatase 97 U/L (40-110); Bilirubin, Total 2.8 mg/dL (0.2-1.2); Calc. Creatinine Clearance 106 mL/min (70-130); Calcium 8.7 mg/dL (7.8-10.44); Estimated GFR 50; Glucose 207 mg/dL (70-105); Protein, Total 6.2 g/dL (6.0-8.3)
[2024-06-06 06:43] LABS: Actual Bicarbonate (HCO3a) 22.6 mEq/L (22-28); Base Excess (BEa) -1.3 mEq/L (-2.0 to +3.0); CO2 Tension 35.1 mmHg (35.0-45.0); Calcium, Ionized (arterial) 1.25 mmol/L (1.12-1.30); Carboxyhemoglobin (COHb) 1.4 gm% (0.0-3.0); Hematocrit-ABG 32 % (36.0-47.0); Hemoglobin (Hb) 10.9 g/dL (12.0-16.0); O2 Tension (PaO2), arterial 99.2 mmHg (80.0-100.0); pH, Arterial 7.427 (7.35-7.45)
[2024-06-06 06:56] LABS: ALV-art Gradient 106.475 mmHg (0-20); Puncture Site Right Radial artery
[2024-06-06] MEDS ORDERED: Lorazepam 2 MG/ML VIAL SLOW IVP PRN (08:51)
[2024-06-06] MEDS ORDERED: Lactulose 20 GM (30 mL) UDCUP PER TUBE PRN (08:57)
[2024-06-06] MEDS: Dextrose 5% in Water 1,000 ML IV SCH (08:57)
[2024-06-06] MEDS: Dexmedetomidine In 0.9 % NaCl 100 ML IVPB SCH (10:50)
[2024-06-06] MEDS: Meropenem 1 GM in Sodium Chloride 0.9% 100 ML IVPB SCH (13:11)
[2024-06-06] MEDS ORDERED: Loperamide HCl 2 MG CAP PO PRN (13:50)
[2024-06-06] MEDS: Loperamide HCl 2 MG CAP PO SCH (14:22)
[2024-06-07 04:18] LABS: ALT (SGPT) 99 U/L (8-55); AST (SGOT) 97 U/L (5-34); Alkaline Phosphatase 93 U/L (40-110); Anion Gap 11 mmol/L (10-20); BUN (Urea Nitrogen) 56 mg/dL (7.0-18.7); Bilirubin, Total 2.7 mg/dL (0.2-1.2); Calc. Creatinine Clearance 164 mL/min (70-130); Calcium 8.3 mg/dL (7.8-10.44); Carbon Dioxide 24 mmol/L (22-29); Chloride 117 mmol/L (98-107); Estimated GFR 85; Globulin 2.9 g/dL (2.4-3.5); Glucose 166 mg/dL (70-105); Potassium 4.3 mmol/L (3.5-5.1); Protein, Total 5.9 g/dL (6.0-8.3); Sodium 148 mmol/L (136-145)
[2024-06-07 04:20] LABS: Hematocrit 23.6 % (36.0-47.0); Hemoglobin 7.3 g/dL (12.0-16.0); Mean Corpuscular HGB CONC 30.9 g/dL (32.0-36.0); Mean Corpuscular Hemoglobin 28.2 pg (27.0-31.0); Mean Corpuscular Volume 91.1 fL (78.0-98.0); Platelet Count 50 10x3/uL (130-400); Red Blood Cell (RBC) Count 2.59 mill/uL (4.20-5.40)
[2024-06-07 04:55] LABS: Anisocytosis SLIGHT = 6-15 cells HPF (0-5); Band 2 % (5-11); Basophilic Stippling SLIGHT = 1-2 cells HPF (None Seen); Hypochromia SLIGHT = 6-15 cells HPF (0-5); Large Platelets 4.9 % (0-5); Lymphocytes 18 % (21-51); Metamyelocyte 3 % (0-0); Monocytes 4 % (0-10); Myelocyte 1 % (0-0); Neutrophil 71 % (42-75); Platelet Adequacy Comment Significant Decrease; Polychromasia SLIGHT = 2-3 cells HPF (0-2); Reactive Lymphocytes 2 % (0-10); Target Cells SLIGHT = 2-5 cells HPF (0-1); Toxic Granulation SLIGHT
[2024-06-07 05:21] LABS: Ferritin 1307.51 ng/mL (10-291)
[2024-06-07 05:42] LABS: HIV (1/2) Antibody/Antigen NONREACTIVE (NonReactive); HIV 1/2 INDEX 0.05 S/CO (<1.00)
[2024-06-07] MEDS ORDERED: Magnevist 469MG/ML 20 ML VIAL ONE (09:43)
[2024-06-07 11:32] LABS: Syphilis Antibody Nonreactive (Nonreactive)
[2024-06-08 05:11] LABS: #Basophils Less than 0.03 10x3/uL (0.0-0.2); %Basophils 0.1 % (0.0-1.0); %Eosinophils 0.3 % (0.0-10.0); %Lymphocytes 21.4 % (21.0-51.0); %Neutrophils 67.3 % (42.0-75.0); Hematocrit 23.8 % (36.0-47.0); Hemoglobin 7.4 g/dL (12.0-16.0); Mean Corpuscular HGB CONC 31.1 g/dL (32.0-36.0); Mean Corpuscular Hemoglobin 28.6 pg (27.0-31.0); Mean Corpuscular Volume 91.9 fL (78.0-98.0); Platelet Count 65 10x3/uL (130-400); Red Blood Cell (RBC) Count 2.59 mill/uL (4.20-5.40)
[2024-06-08 05:13] LABS: Anion Gap 10 mmol/L (10-20); BUN (Urea Nitrogen) 32 mg/dL (7.0-18.7); Calc. Creatinine Clearance 198 mL/min (70-130); Calcium 8.1 mg/dL (7.8-10.44); Carbon Dioxide 24 mmol/L (22-29); Chloride 109 mmol/L (98-107); Estimated GFR 105; Glucose 164 mg/dL (70-105); Potassium 4.5 mmol/L (3.5-5.1); Sodium 138 mmol/L (136-145)
[2024-06-08] MEDS: Pantoprazole DR 40 MG TAB PO SCH (10:02)
[2024-06-08] MEDS: predniSONE 20 MG TAB PO SCH (10:02)
[2024-06-09 05:40] LABS: #Basophils Less than 0.03 10x3/uL (0.0-0.2); %Basophils 0.1 % (0.0-1.0); %Eosinophils 0.5 % (0.0-10.0); %Lymphocytes 18.4 % (21.0-51.0); %Monocytes 7.7 % (0.0-10.0); %Neutrophils 71.3 % (42.0-75.0); Hematocrit 24.8 % (36.0-47.0); Mean Corpuscular HGB CONC 32.3 g/dL (32.0-36.0); Mean Corpuscular Hemoglobin 29.2 pg (27.0-31.0); Mean Corpuscular Volume 90.5 fL (78.0-98.0); Platelet Count 80 10x3/uL (130-400); RBC Distribution Width 17.3 % (11.5-14.5); Red Blood Cell (RBC) Count 2.74 mill/uL (4.20-5.40)
[2024-06-09 06:01] LABS: Anion Gap 11 mmol/L (10-20); BUN (Urea Nitrogen) 25 mg/dL (7.0-18.7); Calc. Creatinine Clearance 200 mL/min (70-130); Calcium 8.4 mg/dL (7.8-10.44); Carbon Dioxide 23 mmol/L (22-29); Chloride 109 mmol/L (98-107); Estimated GFR 107; Glucose 97 mg/dL (70-105); Potassium 3.6 mmol/L (3.5-5.1); Sodium 139 mmol/L (136-145)
[2024-06-09 07:20] LABS: EBV VCA IgM <36.0 U/mL (0.0-35.9)
[2024-06-09] MEDS: Potassium Bicarbonate/Cit Ac 20 MEQ TAB PO SCH (09:19)
[2024-06-09 11:25] LABS: Reference Lab Name LABCORP
[2024-06-09 11:27] LABS: Reference Lab Name LABCORP
[2024-06-09 11:30] LABS: Reference Lab Name LABCORP
[2024-06-09 11:34] LABS: Reference Lab Name LABCORP
[2024-06-10 06:00] LABS: #Basophils Less than 0.03 10x3/uL (0.0-0.2); %Basophils 0.1 % (0.0-1.0); %Eosinophils 0.3 % (0.0-10.0); %Lymphocytes 18.6 % (21.0-51.0); %Monocytes 7.9 % (0.0-10.0); %Neutrophils 71.6 % (42.0-75.0); Hematocrit 23.8 % (36.0-47.0); Hemoglobin 7.3 g/dL (12.0-16.0); Mean Corpuscular HGB CONC 30.7 g/dL (32.0-36.0); Mean Corpuscular Hemoglobin 28.9 pg (27.0-31.0); Mean Corpuscular Volume 94.1 fL (78.0-98.0); Platelet Count 100 10x3/uL (130-400); RBC Distribution Width 17.8 % (11.5-14.5); Red Blood Cell (RBC) Count 2.53 mill/uL (4.20-5.40)
[2024-06-10 06:03] LABS: ALT (SGPT) 60 U/L (8-55); AST (SGOT) 53 U/L (5-34); Albumin 2.9 g/dL (3.5-5.0); Alkaline Phosphatase 77 U/L (40-110); Anion Gap 12 mmol/L (10-20); BUN (Urea Nitrogen) 18 mg/dL (7.0-18.7); Bilirubin, Total 2.1 mg/dL (0.2-1.2); Calc. Creatinine Clearance 200 mL/min (70-130); Calcium 8.4 mg/dL (7.8-10.44); Carbon Dioxide 22 mmol/L (22-29); Cardiac Risk 6.6 (Less than 4.5); Chloride 106 mmol/L (98-107); Cholesterol 86 mg/dl (< 200 Desired); Estimated GFR 107; Glucose 101 mg/dL (70-105); HDL Cholesterol 13 mg/dL (>60 Neg Risk); LDL Cholesterol, Calculated 30 mg/dL; Potassium 3.6 mmol/L (3.5-5.1); Protein, Total 5.9 g/dL (6.0-8.3); Sodium 136 mmol/L (136-145); Triglycerides 215 mg/dL (Less than 150)
[2024-06-10] MEDS: Benzocaine/Menthol 1 LOZ LOZ PO PRN (10:47)
[2024-06-10 11:39] VITALS: BMI 41.3
[2024-06-10 13:02] VITALS: BP 93/56; TEMP 98.4
[2024-06-10 13:40] LABS: Hematocrit 26.2 % (36.0-47.0)
[2024-06-10 14:22] LABS: Reference Lab Name LABCORP
[2024-06-10] MEDS: Phenol 177 ML BOT PO PRN (15:23)
[2024-06-11 12:17] LABS: Epstein Barr Virus PCR Positive (Negative)
== END 2024-06-10 16:27 | disposition home or self-care (01) | DRG 870 ==
LOC: ERS 15:08 → CCU 18:37 → SURG A 06-08 12:53
PROVIDERS: ADMIT Internal Medicine; ATTEND Internal Medicine
PROC: 0BH17EZ Insertion of Endotracheal Airway into Trachea, Via Natural or Artificial Opening (ICD-10-PCS; principal; 2024-05-31)
PROC: 5A1955Z Respiratory Ventilation, Greater than 96 Consecutive Hours (ICD-10-PCS; 2024-05-31)
PROC: B548ZZA Ultrasonography of Superior Vena Cava, Guidance (ICD-10-PCS; 2024-05-31)
PROC: 02HV33Z Insertion of Infusion Device into Superior Vena Cava, Percutaneous Approach (ICD-10-PCS; 2024-05-31)
DX: A41.89 Other specified sepsis (principal); D65 Disseminated intravascular coagulation [defibrination syndrome]; R65.21 Severe sepsis with septic shock; K72.00 Acute and subacute hepatic failure without coma; J80 Acute respiratory distress syndrome; J18.9 Pneumonia, unspecified organism; D76.1 Hemophagocytic lymphohistiocytosis; N17.9 Acute kidney failure, unspecified; E87.1 Hypo-osmolality and hyponatremia; E87.20 Acidosis, unspecified; N39.0 Urinary tract infection, site not specified; E87.0 Hyperosmolality and hypernatremia; G43.909 Migraine, unspecified, not intractable, without status migrainosus; D73.5 Infarction of spleen; Z87.891 Personal history of nicotine dependence; E87.6 Hypokalemia; Z79.899 Other long term (current) drug therapy; D63.8 Anemia in other chronic diseases classified elsewhere; E88.09 Other disorders of plasma-protein metabolism, not elsewhere classified
CPT/HCPCS: 0241U; 36415; 36416; 36430; 36600; 70553; 71045; 74177; 76376; 76705; 80048; 80053; 80061; 80074; 80202; 81001; 82164; 82247; 82248; 82728; 82805; 83010; 83516; 83520; 83605; 83615; 83690; 83735; 83880; 84100; 84484; 84703; 85025; 85046; 85049; 85060; 85300; 85362; 85379; 85384; 85610; 85730; 86037; 86038; 86141; 86160; 86225; 86235; 86308; 86331; 86376; 86602; 86606; 86644; 86664; 86665; 86671; 86780; 86850; 86900; 86901; 87040; 87081; 87086; 87207; 87389; 87449; 87633; 87798; 87899; 88184; 93005; 93306; 93970; 94002; 94003; 94660; 95705; 96365; 96366; 96368; 96375; 97139; J0692; J1720; J1815; J1940; J1956; J2060; J2185; J2250; J2272; J2405; J2470; J2704; J2919; J3010; J3370; J3370-JW; J3480; J3490; J7050; J7070; J7120; J7512; P9012; P9035; P9047; Q9967

== ENCOUNTER 2024-07-02 12:57 | Emergency (ER) | payer OTHER ==
[2024-07-02] MEDS ORDERED: Ibuprofen 200 MG TAB ONE (13:41)
[2024-07-02 14:23] LABS: #Basophils 0.05 10x3/uL (0.0-0.2); %Basophils 0.7 % (0.0-1.0); %Eosinophils 0.4 % (0.0-10.0); %Lymphocytes 20.4 % (21.0-51.0); %Monocytes 14.9 % (0.0-10.0); Hematocrit 31.6 % (36.0-47.0); Hemoglobin 10.5 g/dL (12.0-16.0); Mean Corpuscular HGB CONC 33.2 g/dL (32.0-36.0); Mean Corpuscular Hemoglobin 31.3 pg (27.0-31.0); Mean Platelet Volume 10.1 fL (7.4-10.4); Platelet Count 205 10x3/uL (130-400); RBC Distribution Width 16.7 % (11.5-14.5); Red Blood Cell (RBC) Count 3.36 mill/uL (4.20-5.40)
[2024-07-02 14:35] LABS: BHCG - Serum Negative (NEGATIVE); Pregs Control Background? CLEAR/WHITE (CLR/WHITE); Pregs Control Bar Appear? YES (CONTROL BAR)
[2024-07-02 14:56] LABS: ALT (SGPT) 43 U/L (8-55); AST (SGOT) 35 U/L (5-34); Albumin 3.3 g/dL (3.5-5.0); Alkaline Phosphatase 76 U/L (40-110); Anion Gap 13 mmol/L (10-20); BUN (Urea Nitrogen) 12 mg/dL (7.0-18.7); Bilirubin, Total 0.6 mg/dL (0.2-1.2); Calc. Creatinine Clearance 0 mL/min (70-130); Calcium 8.8 mg/dL (7.8-10.44); Carbon Dioxide 20 mmol/L (22-29); Chloride 104 mmol/L (98-107); Estimated GFR 99; Glucose 84 mg/dL (70-105); Potassium 4.1 mmol/L (3.5-5.1); Protein, Total 7.3 g/dL (6.0-8.3); Sodium 133 mmol/L (136-145)
[2024-07-02] MEDS ORDERED: Ketorolac Tromethamine 30 MG (1 mL) VIAL ONE (16:04)
[2024-07-02] MEDS ORDERED: Acetaminophen 500 MG TAB ONE (16:04)
== END 2024-07-02 19:16 | disposition home or self-care (01) ==
LOC: ERS 12:57
DX: B34.9 Viral infection, unspecified (principal); R00.0 Tachycardia, unspecified; Z87.890 Personal history of sex reassignment
CPT/HCPCS: 71046; 71275; 83605; 84703; 93005; 96374; J1885

== ENCOUNTER 2024-08-02 20:33 | Observation (INO) | payer OTHER ==
[2024-08-02 21:00] LABS: #Basophils 0.05 10x3/uL (0.0-0.2); %Basophils 0.5 % (0.0-1.0); %Eosinophils 1.4 % (0.0-10.0); %Lymphocytes 20.3 % (21.0-51.0); %Monocytes 13.9 % (0.0-10.0); %Neutrophils 63.5 % (42.0-75.0); Hematocrit 35.9 % (36.0-47.0); Hemoglobin 11.7 g/dL (12.0-16.0); Mean Corpuscular HGB CONC 32.6 g/dL (32.0-36.0); Mean Corpuscular Hemoglobin 29.6 pg (27.0-31.0); Mean Corpuscular Volume 90.9 fL (78.0-98.0); Mean Platelet Volume 10.3 fL (7.4-10.4); Platelet Count 246 10x3/uL (130-400); RBC Distribution Width 13.3 % (11.5-14.5); Red Blood Cell (RBC) Count 3.95 mill/uL (4.20-5.40)
[2024-08-02] MEDS ORDERED: Ketorolac Tromethamine 30 MG (1 mL) VIAL ONE (21:06)
[2024-08-02] MEDS ORDERED: Dexamethasone 10 MG/ML VIAL ONE (21:06)
[2024-08-02 21:15] LABS: ALT (SGPT) 20 U/L (8-55); AST (SGOT) 22 U/L (5-34); Albumin 3.6 g/dL (3.5-5.0); Alkaline Phosphatase 64 U/L (40-110); Anion Gap 14 mmol/L (10-20); BUN (Urea Nitrogen) 8 mg/dL (7.0-18.7); Bilirubin, Total 0.4 mg/dL (0.2-1.2); Calc. Creatinine Clearance 0 mL/min (70-130); Calcium 9.3 mg/dL (7.8-10.44); Carbon Dioxide 20 mmol/L (22-29); Chloride 105 mmol/L (98-107); Estimated GFR 102; Globulin 4.3 g/dL (2.4-3.5); Glucose 103 mg/dL (70-105); Lipase 62 U/L (8-78); Potassium 3.9 mmol/L (3.5-5.1); Protein, Total 7.9 g/dL (6.0-8.3); Sodium 135 mmol/L (136-145)
[2024-08-02 21:56] LABS: BHCG - Serum Negative (NEGATIVE); Pregs Control Background? CLEAR/WHITE (CLR/WHITE); Pregs Control Bar Appear? YES (CONTROL BAR)
[2024-08-02 22:01] LABS: Troponin I Less than 0.010 ng/mL (< 0.028)
[2024-08-02 22:50] LABS: Bacteria/HPF None Seen HPF (None Seen); Bilirubin Negative (Negative); Blood, Urine 3+ (Negative); CAUTI Indications for Culture Pelvic or flank pain; Clarity Clear (Clear); Glucose, Urine (Dipstick) Normal (Negative); Ketone, Urine Negative (Negative); Leukocyte 25 Leu/uL (Negative); Nitrite Negative (Negative); Protein, Urine (Dipstick) 10 mg/dL (Neg-Trace); Specific Gravity, Urine 1.019 (1.002-1.036); Urobilinogen Normal mg/dL (Less than 2); pH, Urine 5.5 (5.0-9.0)
[2024-08-02 22:52] LABS: Urine Culture Reflex No No
[2024-08-02] MEDS ORDERED: cefTRIAXone (ROCEPHIN) 2 GM VIAL ONE (23:58)
[2024-08-02] MEDS ORDERED: Sodium Chloride 0.9% 100 ML ONE (23:58)
[2024-08-02] MEDS ORDERED: Azithromycin 500 MG VIAL ONE (23:58)
[2024-08-03] MEDS ORDERED: Acetaminophen 650 MG Suppository PR PRN (00:24)
[2024-08-03] MEDS ORDERED: Acetaminophen 325 MG TAB PO PRN (00:24)
[2024-08-03] MEDS ORDERED: Azithromycin 500 MG VIAL ONE (00:55)
[2024-08-03 02:04] VITALS: BMI 36.8
[2024-08-03 04:40] LABS: Legionella Urinary Ag Negative (Negative); Strep pneumo Urine Ag NEGATIVE (NEGATIVE)
[2024-08-03 05:09] LABS: #Basophils Less than 0.03 10x3/uL (0.0-0.2); #Eosinophils Less than 0.03 10x3/uL (0.0-0.7); %Basophils 0.2 % (0.0-1.0); %Lymphocytes 12.1 % (21.0-51.0); %Monocytes 4.9 % (0.0-10.0); %Neutrophils 82.1 % (42.0-75.0); Hematocrit 35.4 % (36.0-47.0); Hemoglobin 11.5 g/dL (12.0-16.0); Mean Corpuscular HGB CONC 32.5 g/dL (32.0-36.0); Mean Corpuscular Hemoglobin 29.6 pg (27.0-31.0); Mean Platelet Volume 10.6 fL (7.4-10.4); Platelet Count 223 10x3/uL (130-400); RBC Distribution Width 13.4 % (11.5-14.5); Red Blood Cell (RBC) Count 3.89 mill/uL (4.20-5.40)
[2024-08-03 05:28] LABS: Anion Gap 16 mmol/L (10-20); BUN (Urea Nitrogen) 12 mg/dL (7.0-18.7); Calc. Creatinine Clearance 157 mL/min (70-130); Calcium 8.9 mg/dL (7.8-10.44); Carbon Dioxide 18 mmol/L (22-29); Chloride 108 mmol/L (98-107); Estimated GFR 92; Glucose 153 mg/dL (70-105); Potassium 4.5 mmol/L (3.5-5.1); Sodium 137 mmol/L (136-145)
[2024-08-03] MEDS: Famotidine 20 MG TAB PO SCH (08:51)
[2024-08-03] MEDS ORDERED: traMADol HCl 50 MG TAB PO PRN (09:06)
[2024-08-03] MEDS ORDERED: Ondansetron PF 4 MG/2 ML Vial IVP PRN (09:06)
[2024-08-03] MEDS: Acetaminophen 325 MG TAB PO PRN (09:29)
[2024-08-03] MEDS ORDERED: Ipratropium/Albuterol 3 ML NEB NEB PRN (10:29)
[2024-08-03] MEDS: guaiFENesin ER 600 MG TAB PO SCH ×2 (11:17→20:25)
[2024-08-03] MEDS: Ketorolac Tromethamine 30 MG (1 mL) VIAL IVP SCH (11:17)
[2024-08-03] MEDS: Amitriptyline HCl 25 MG TAB PO SCH (20:26)
[2024-08-03] MEDS: cefTRIAXone\\ROCEPHIN 1 GM in Sodium Chloride 0.9% 100 ML IVPB SCH (23:57)
[2024-08-03] MEDS: Azithromycin 500 MG in Sodium Chloride 0.9% 250 ML 250 ML IVPB SCH (23:58)
[2024-08-04 05:41] LABS: #Basophils 0.04 10x3/uL (0.0-0.2); %Basophils 0.5 % (0.0-1.0); %Eosinophils 1.3 % (0.0-10.0); %Lymphocytes 30.1 % (21.0-51.0); %Monocytes 12.3 % (0.0-10.0); Hematocrit 32.2 % (36.0-47.0); Hemoglobin 10.2 g/dL (12.0-16.0); Mean Corpuscular HGB CONC 31.7 g/dL (32.0-36.0); Mean Corpuscular Hemoglobin 29.4 pg (27.0-31.0); Mean Corpuscular Volume 92.8 fL (78.0-98.0); Mean Platelet Volume 10.7 fL (7.4-10.4); Platelet Count 208 10x3/uL (130-400); RBC Distribution Width 13.3 % (11.5-14.5); Red Blood Cell (RBC) Count 3.47 mill/uL (4.20-5.40)
[2024-08-04 06:04] LABS: Anion Gap 11 mmol/L (10-20); BUN (Urea Nitrogen) 16 mg/dL (7.0-18.7); Calc. Creatinine Clearance 185 mL/min (70-130); Calcium 8.5 mg/dL (7.8-10.44); Carbon Dioxide 20 mmol/L (22-29); Chloride 113 mmol/L (98-107); Estimated GFR 112; Glucose 92 mg/dL (70-105); Potassium 4.1 mmol/L (3.5-5.1); Sodium 140 mmol/L (136-145)
[2024-08-04 06:05] LABS: CRP,High Sensitivity (Inhouse) 3.69 mg/dL (< or = 0.5)
[2024-08-04 08:00] VITALS: BP 104/69; TEMP 98
[2024-08-06] MEDS ORDERED: FLU (Fluarix Triv) TS24-25(6MOS UP)/PF 45 MCG/0.5 ML Syringe IM ONE (09:00)
== END 2024-08-04 11:54 | disposition home or self-care (01) ==
LOC: ERS 20:33 → INTOOBSV 08-03 00:18 → T4-B 08-03 00:18
PROVIDERS: ADMIT Internal Medicine; ATTEND Family Medicine
DX: J18.9 Pneumonia, unspecified organism (principal); B97.89 Other viral agents as the cause of diseases classified elsewhere; Z87.59 Personal history of other complications of pregnancy, childbirth and the puerperium; Z87.891 Personal history of nicotine dependence; Z79.2 Long term (current) use of antibiotics; Z79.899 Other long term (current) drug therapy
CPT/HCPCS: 36415; 71045; 71275; 74177; 80048; 80053; 81001; 82728; 83605; 83690; 83880; 84484; 84703; 85025; 86141; 87428; 87449; 87633; 87798; 87899; 93005; 96365; 96375; 96376; G0378; J0456; J0696; J1100; J1885; J7050; Q9967